=== PATIENT | female | born 1985 | race African-American/Black ===

== ENCOUNTER 2017-02-28 11:56 | Emergency (ER) | payer OTHER ==
[~2017-02-28] VITALS: Ht 165.1 cm; Wt 72.6 kg
[2017-02-28 14:54] LABS: microscopic required? YES; urine erythrocyte NEGATIVE (NEGATIVE)
[2017-02-28 15:25] VITALS: BP 117/79
== END 2017-02-28 15:25 | disposition home or self-care (01) ==
LOC: ED 11:56
PROVIDERS: Emergency Medicine
DX: N39.0 Urinary tract infection, site not specified (principal); N76.0 Acute vaginitis; A59.9 Trichomoniasis, unspecified
CPT/HCPCS: 87491; 87591; J1885